=== PATIENT | female | born 1970 | race Caucasian/White ===

== ENCOUNTER 2019-12-28 13:12 | Emergency (ER) | payer BC ==
[~2019-12-28] VITALS: Ht 162.6 cm; Wt 52.2 kg
--- NOTE | 2019-12-28 13:22 | NUR ---
Dr. Trevizo at bedside for MSE
[2019-12-28] MEDS ORDERED: TDAP DIPH,PERTUSS,TET VAC/PF 0.5 ML DISP.SYRIN IM ONE ×2 (13:30→13:56)
[2019-12-28] MEDS ORDERED: LIDOCAINE HCL 1% 20 ML VIAL IJ ONE (13:30)
--- NOTE | 2019-12-28 14:18 | NUR ---
Patient discharged to home in stable condition. Written and verbal after care instructions given. Patient verbalizes understanding of instructions. Stressed follow up or return to ER for worsening s/s. Patient ambulated with steady gait. NAD noted. No s/s of bleeding noted
[2019-12-28 14:22] VITALS: BP 122/61
== END 2019-12-28 14:18 | disposition home or self-care (01) ==
LOC: ER 13:12
DX: S61.211A Laceration without foreign body of left index finger without damage to nail, initial encounter (principal); W26.0XXA Contact with knife, initial encounter; Y93.G1 Activity, food preparation and clean up; Y92.89 Other specified places as the place of occurrence of the external cause
CPT/HCPCS: 12001; 90471; 90715; 99283; J3490; A4663